=== PATIENT | female | born 1965 | race Hispanic/Latino ===

== ENCOUNTER 2023-01-13 22:01 | Emergency (ER) | payer OTHER ==
[~2023-01-13] VITALS: Ht 157.5 cm; Wt 98.4 kg
[2023-01-13] MEDS ORDERED: IBUPROFEN 800 MG TAB PO ONE (23:30)
[2023-01-13] MEDS ORDERED: GABAPENTIN 300 MG CAPSULE PO ONE (23:30)
[2023-01-13] MEDS ORDERED: CYCLOBENZAPRINE HCL 10 MG TABLET PO ONE (23:30)
[2023-01-14] MEDS ORDERED: GABA300C PO (00:22)
[2023-01-14] MEDS ORDERED: IBUP-1493 PO (00:22)
[2023-01-14] MEDS ORDERED: CYCL-309 PO (00:22)
[2023-01-14] MEDS ORDERED: PRED20TA3 PO (00:22)
[2023-01-14 00:32] VITALS: BP 165/87; PULSE 73; RESP 17; O2SAT 97
== END 2023-01-14 00:33 | disposition home or self-care (01) ==
LOC: EDH 22:01
DX: M54.2 Cervicalgia (principal); R51.9 Headache, unspecified; I10 Essential (primary) hypertension; Z88.0 Allergy status to penicillin
CPT/HCPCS: 70450; 72125

== ENCOUNTER 2024-05-14 14:18 | Emergency (ER) | payer BC ==
[~2024-05-14] VITALS: Ht 157.5 cm; Wt 98.4 kg
[~2024-05-14 14:18] MED LIST: CYCL-309 PO; GABA300C PO; IBUP-1493 PO; PRED20TA3 PO
--- NOTE | 2024-05-14 14:25 | NUR ---
SEEN BY DR. BROWN IN TRIAGE
--- NOTE | 2024-05-14 14:32 | EKG ---
[facility] Test Date: 2024-05-14 Test Time: 14:26:43 Pat Name: JUAN A MCMAHON Department: [facility] Room: Gender: F [employer] Supervisor: [id number] : 1965 Requested By: BEVERLEY BROWN Order Number: [id number] Reading MD: Ace Ramsey Measurements Intervals [place] Rate: 78 P: 19 ID: [id number] QRS: -22 QRSD: 91 T: 13 QT: 424 QTc: 485 Interpretive Statements Sinus rhythm Low voltage, precordial leads Probable anteroseptal infarct, old No previous ECG available for comparison Electronically Signed On 05-16-2024 16:02:26 [employer] by Ace Ramsey Please click the below link to view image of tracing.
[2024-05-14 14:54] LABS: RAPID GROUP A STREP negative (NEGATIVE)
[2024-05-14 15:04] LABS: COVID19 (SARS ANTIGEN RAPID) PRESUMPTIVE NEGATIVE (NEGATIVE)
--- NOTE | 2024-05-14 15:07 | ERN ---
General Chief Complaint: Congestion Stated Complaint: CHEST AND BACK PAIN Time Seen by MD: 14:24 Source: patient History of Present Illness Initial Comments Patient is a 59-year-old female coming in to be evaluated for URI symptoms. Per patient she has been having these symptoms for a couple of days. He states that he has been having nasal congestion and teeth pain for a while. Allergies: Coded Allergies: Penicillins (Unverified Allergy, Unknown, 01/13/23) Home Meds Active Scripts Cyclobenzaprine HCl (Cyclobenzaprine HCl) 10 Mg Tablet, 10 MG PO TIDP PRN for PAIN, #30 TAB Prov:JONES MOJICA MD 01/14/23 Ibuprofen (Motrin/Advil) 800 Mg Tab, 800 MG PO TID, #30 TAB Prov:JONES MOJICA MD 01/14/23 Gabapentin (Neurontin) 300 Mg Capsule, 300 MG PO TID, #60 CAP Prov:JONES MOJICA MD 01/14/23 Prednisone (Prednisone) 20 Mg Tablet, 1 TAB PO AD for 6 Days, #14 TAB 0 Refills TAKE 3 TAB BY MOUTH daily X3 DAYS, THEN TAKE 2 TAB BY MOUTH daily X2 DAYS, THEN TAKE 1 TAB BY MOUTH ONCE A DAY X1 DAY. Prov:JONES MOJICA MD 01/14/23 Past Medical History Past Medical History: Hypertension Past Surgical History: None Family History Family History: Negative Social History Social History: Negative, Lives with family ROS Dictation CONSTITUTIONAL: No chills, no fever, no weakness, no diaphoresis, no malaise. HEAD/FACE: No signs of trauma. EENT: No eye pain, no blurred vision, no tearing, no double vision, no ear pain, no ear discharge, no nose pain, no nasal congestion, no throat pain, no throat swelling, no mouth pain. RESPIRATORY: No cough, no orthopnea, no SOB, no stridor, no wheezing. CARDIOVASCULAR: No chest pain, no edema, no palpitations, no syncope. GASTROINTESTINAL/ABDOMINAL: No abdominal pain, no constipation, no diarrhea, no nausea, no vomiting. GENITOURINARY: No abnormal discharge, no dysuria, no frequent urination, no hematuria. No complaints of pain in the genitals. MUSCULOSKELETAL: No back pain, no gout, no joint pain, no joint swelling, no muscle pain, no muscle stiffness, no neck pain. INTEGUMENTARY: No change in color, no change in hair/nails, no dryness, no lesion, no lumps, no rash. NEUROLOGICAL/PSYCH: No anxiety, not depressed, no emotional problem, no headache, no numbness, no pre-existing deficit, no history of seizures, no tremors, no weakness. HEMATOLOGIC/LYMPHATIC: Not anemic, no history of blood clots, no apparent bleeding, no bruising, glands not swollen. All Systems Negative, Except as Noted. Physical Exam Physical Exam Dictation VITAL SIGNS: Reviewed. GENERAL APPEARANCE: Alert, oriented x3, no acute distress, obese. HEAD AND FACE: Non-traumatic. EYES: PERRL, pink conjunctivas, eyelid no trauma, anterior chamber clear. EARS: Pinnas intact and no signs of trauma or erythema. Ear canals clear and no discharge. TMs erythema. NOSE: No discharge, no bleeding. OROPHARYNX: Mouth normal, teeth no caries, tongue pink. Pharynx erythema. Tonsils no exudates, no abscesses noted. Mucous membrane moist. NECK: Supple, non-tender, no thyromegaly, no masses, no JVD, no bruits. BREAST: Deferred. CHEST: No tenderness, no crepitus, no paradoxical movement, no retractions. LUNGS: Clear, well-ventilated, symmetric, no rales, no wheezing, no rhonchi, no stridor, good breath sounds bilaterally. HEART: Regular rate, regular rhythm, no murmur, no gallops. VASCULAR: No peripheral edema. ABDOMEN: Soft, positive bowel sounds, nondistended, no guarding, nontender, no rebound, no masses no hepatomegaly, no splenomegaly, no Rolon's sign, no hernias. RECTAL: Deferred. GENITAL: Deferred. NEUROLOGICAL: Normal speech, gross motor function intact, gross sensory function intact. MUSCULOSKELETAL: Neck nontender, full range of motion, back nontender, full range of motion. EXTREMITIES: Nontender, full range of motion. SKIN: Color pink, dry, no turgor, no rash, no lacerations, no abrasions, no contusions. LYMPHATICS: Deferred. Results Laboratory and Microbiology Lab and Micro Result Laboratory Tests Test 05/14/24 14:25 Influenza Type A Antigen Negative For Type A Influenza Type B Antigen Negative For Type B SARS-CoV-2 Antigen (Rapid) PRESUMPTIVE NEGATIVE Group A Streptococcus Rapid negative (NEGATIVE) Labs Reviewed?: Yes EKG/XRAY/US/CT/MRI EKG Comment 05/14/2024 time 2:26 p.m. Ventricular rate 78 Sinus rhythm SD [address] wave elevation or depression X-RAY Comment chest xray-nad MDM MDM: Differential diagnosis: Sinusitis, URI, Patient is a 59-year-old female coming in to be evaluated for nasal congestion sinus discomfort and cough. Left tympanic membrane erythema right cerumen impaction. Patient will be discharged with a diagnosis of sinusitis. Antibiotics were provided I advised her follow up with PCP in 1-2 days. ED Course Orders Procedure Category Date Status Time Influenza Type A & B, LAB 05/14/24 Complete Rapid 14:24 Rapid (Group A Strep) LAB 05/14/24 Complete 14:24 Covid19 (Sars Antigen LAB 05/14/24 Complete Rapid) 14:24 12 Lead Ekg Tracing- EKG 05/14/24 Complete Technical 14:25 Chest 1vw RAD 05/14/24 Resulted 14:25 Vital Signs Date Time Temp Pulse Resp B/P (MAP) Pulse Ox O2 Delivery O2 Flow Rate FiO2 05/14/24 14:21 97.7 79 16 178/111 99 Room Air DX & DISP Disposition: Discharge Departure Impression: Primary Impression: Sinusitis Condition: Stable Scripts Loratadine (Loratadine) 10 Mg Tablet 1 TAB PO DAILY for allergy symptoms for 30 Days, #30 TAB 0 Refills Prov: BEVERLEY BROWN MD 05/14/24 Fluticasone Propionate (Flonase Nasal [place]) 50 Mcg/Actuation [place] 2 SPRAY NS DAILY, #16 GM 0 Refills Prov: BEVERLEY BROWN MD 05/14/24 Doxycycline Hyclate (Doxycycline Hyclate) 100 Mg Capsule 1 CAP PO BID for 10 Days, #20 CAP 0 Refills Prov: BEVERLEY BROWN MD 05/14/24 Additional Instructions: FOLLOW-UP WITH PRIMARY CARE PROVIDER IN 1 TO 2 DAYS. TAKE MEDICATIONS DIRECTED HERE IN THE EMERGENCY ROOM. OKAY TO CONTINUE HOME MEDICATIONS UNLESS OTHERWISE DISCUSSED DURING YOUR VISIT IN THE EMERGENCY ROOM TODAY. RETURN TO YOUR NEAREST EMERGENCY ROOM IF SYMPTOMS WORSEN OR IF THERE IS NO IMPROVEMENT. CALL 911 IF YOU NEED IMMEDIATE ASSISTANCE. TAKE TYLENOL [id number] NEEDED AND IF NO CONTRAINDICATIONS ARE PRESENT. INCREASE ORAL HYDRATION. A WOUND CULTURE OR URINE CULTURE WAS ORDERED HERE IN THE EMERGENCY ROOM DEPARTMENT PLEASE FOLLOW-UP WITH PRIMARY CARE PROVIDER AND ADVISE THEM TO GET REPEAT PORTS FROM OUR FACILITY. IF YOU HAD ANY PREMA WRAP/SPLINTS THAT WERE APPLIED HERE, PLEASE DO NOT REMOVE THEM UNTIL YOU SEE YOUR PRIMARY CARE OR SPECIALTY. Referrals: Referrals: ALICE ANTONY MD (PCP) Time of Disposition: 15:31 BEVERLEY BROWN MD May 14, 2024 15:07
[2024-05-14 15:10] LABS: INFLUENZA TYPE A Negative For Type A (NEGATIVE); INFLUENZA TYPE B Negative For Type B (NEGATIVE)
--- NOTE | 2024-05-14 15:19 | HMCIMG ---
CHEST 1VW CLINICAL HISTORY: cough COMPARISON: None TECHNIQUE: Single view of the chest was obtained. FINDINGS: Lungs are clear. The cardiac size and mediastinum are unremarkable. The bony structures are within normal limits. IMPRESSION: No acute cardiopulmonary process identified.
[2024-05-14] MEDS ORDERED: FLUT16H NS (15:32)
[2024-05-14] MEDS ORDERED: LORA10TA7 PO (15:32)
[2024-05-14] MEDS ORDERED: DOXY100C5 PO (15:32)
[2024-05-14 15:41] VITALS: BP 142/68; PULSE 78; RESP 20; TEMP 97.8; O2SAT 98
== END 2024-05-14 15:47 | disposition home or self-care (01) ==
LOC: EDH 14:18
DX: J32.9 Chronic sinusitis, unspecified (principal); I10 Essential (primary) hypertension; Z79.1 Long term (current) use of non-steroidal anti-inflammatories (NSAID); Z79.899 Other long term (current) drug therapy; Z88.0 Allergy status to penicillin; Z20.822 Contact with and (suspected) exposure to COVID-19
CPT/HCPCS: 71045; 87426; 87804; 87880; 93005; 99284